=== PATIENT | male | born 1975 | race Caucasian/White ===

== ENCOUNTER 2023-04-21 15:25 | Outpatient (CLI) | payer BC | END 2023-04-21 15:26 | disposition home or self-care (01) | LOC: CSHMRI 15:25 | PROVIDERS: ATTEND Family Medicine | DX: M47.26 Other spondylosis with radiculopathy, lumbar region (principal); N28.9 Disorder of kidney and ureter, unspecified | CPT/HCPCS: 72100; 72148 ==